=== PATIENT | male | born 1950 | race Caucasian/White ===

== ENCOUNTER 2017-10-17 13:59 | Outpatient (CLI) | payer MEDICARE ==
--- NOTE | 2017-10-18 08:41 | MRI ---
MRI PELVIS WITH AND WITHOUT CONTRAST: Date: 10/17/17 HISTORY: Prostate cancer screening. C61, prostate cancer. Multiple prior prostate biopsies. Most recent PSA wa s 5.61 ng/mL. TECHNIQUE: Multiplanar, multisequence MRI of the pelvis performed prior to and after the intravenous administrat ion of contrast using prostate protocol. Review is performed at an independent 3D workstation. FINDINGS: Prostate: Prostate measures 5.4 x 4.3 x 4.5 cm, for a volume of 51.66 mL. Peripheral Zone: No abnormality seen on DWI or ADC. Transitional Zone: Within the apex of the gland transitional zone medial right lobe, is a focal area of lentiform noncir cumscribed homogeneous moderately T2 hypointense lesion. This measures approximately 0.6 x 0.9 x 1.1 cm (trans x AP x CC). This mass does arterial enhancement and washout. Neurovascular Bundles: Intact. Prostatic Capsule: Intact. Bones: No abnormal loss of signal on T1-weighted images to suggest metastatic disease. Lymph Nodes: Intact. No adenopathy. Intrapelvic Soft Tissues: Normal. IMPRESSION: PI-RADS 4: High (clinically significant cancer is likely to be present). This is in the right transi tional zone apex medial gland measuring 0.6 x 0.9 x 1.1 cm. No extraprostatic extension. No neurovasc ular bundle invasion. No adenopathy or evidence of osseous metastatic disease. POS: [facility]
== END 2017-10-17 14:00 | disposition home or self-care (01) ==
LOC: BICMRI 13:59 → TBSIIMAG 14:00
PROVIDERS: ATTEND Urology
DX: C61 Malignant neoplasm of prostate (principal)
CPT/HCPCS: 72197; 82565

== ENCOUNTER 2017-11-29 10:13 | Outpatient (CLI) | payer MEDICARE ==
[2017-11-29 11:35] LABS: Mean Corpuscular HGB CONC 33.4 g/dL (32.0-36.0); Mean Corpuscular Hemoglobin 29.8 pg (27.0-31.0); Mean Corpuscular Volume 89.1 fL (78.0-98.0); Mean Platelet Volume 8.5 fL (7.4-10.4); Platelet Count 145 thou/uL (130-400); Red Blood Cell (RBC) Count 5.36 mill/uL (4.70-6.10); White Blood Cell (WBC) Count 6.2 thou/uL (4.8-10.8)
[2017-11-29 11:37] LABS: Bilirubin Negative (Negative); Blood, Urine Negative (Negative); Clarity CLEAR (Clear); Glucose, Urine (Dipstick) Negative (Negative); Leukocyte Trace (Negative); Nitrite Negative (Negative); Protein, Urine (Dipstick) Negative (Neg-Trace); Specific Gravity, Urine 1.015 (1.002-1.036); Urobilinogen 0.2 mg/dL (0.2-1.0)
[2017-11-29 11:39] LABS: Bacteria/HPF None Seen HPF (None Seen); Hyaline Casts/LPF 0-3 HYALINE CAST LPF (0-3 Hyaline); Pathc Cast-AUWi Flag 0.14 (0-2.49); RBC/HPF 0-3 HPF (0-3); Squamous Epithelial None Seen HPF (0-3)
[2017-11-29 11:51] LABS: INR-International Normal Ratio 0.9; PTT 30.7 SEC (22.9-36.1); Prothrombin Time 12.7 SEC (12.0-14.7)
[2017-11-29 12:00] LABS: Anion Gap 12 mmol/L (10-20); BUN (Urea Nitrogen) 16 mg/dL (8.4-25.7); Calc. Creatinine Clearance 0 mL/min (70-130); Calcium 9.3 mg/dL (7.8-10.44); Carbon Dioxide 26 mmol/L (23-31); Chloride 104 mmol/L (98-107); Estimated GFR-MDRD 62; Glucose 93 mg/dL (80-115); Potassium 4.1 mmol/L (3.5-5.1); Sodium 138 mmol/L (136-145)
--- NOTE | 2017-12-01 23:16 | EKG ---
Test Reason : Blood Pressure : / mmHG Vent. Rate : 067 BPM Atrial Rate : 067 BPM P-R Int : 180 ms QRS Dur : 160 ms QT Int : 462 ms P-R-T Axes : 066 -14 063 degrees QTc Int : 488 ms Normal sinus rhythm Left bundle branch block Abnormal ECG No previous ECGs available Confirmed by Tonio HUNTER ([id number]) on 12/01/2017 11:16:31 PM Referred By: JERONIMO Confirmed By:Tonio HUNTER
== END 2017-11-29 10:14 | disposition home or self-care (01) ==
LOC: LABBT 10:13
PROVIDERS: ATTEND Urology
DX: Z01.818 Encounter for other preprocedural examination (principal); C61 Malignant neoplasm of prostate
CPT/HCPCS: 80048; 81001; 85027; 85610; 85730; 87086; 93005; 93010

== ENCOUNTER 2017-12-10 11:02 | Day surgery (SDC) | payer MEDICARE ==
[2017-11-29 10:29] VITALS: BMI 24.1
[2017-12-10] MEDS ORDERED: cefTRIAXone\\ROCEPHIN 1 GM VIAL ONE (14:35)
[2017-12-10] MEDS ORDERED: Sodium Chloride 0.9% 100 ML ONE (14:37)
[2017-12-10] MEDS ORDERED: Lidocaine 1% PF 5 ML VIAL ONE (14:52)
[2017-12-10] MEDS ORDERED: PROPOFOL 200 MG/20 ML VIAL ONE (14:52)
[2017-12-10] MEDS ORDERED: ePHEDrine/0.9% NaCl/PF SYRINGE 50 mg/10 ml ONE (14:52)
[2017-12-10] MEDS ORDERED: Fentanyl 100 MCG/2 ML VIAL ONE (15:51)
[2017-12-10] MEDS ORDERED: Midazolam HCl 2 mg/2 ml Vial ONE (15:51)
--- NOTE | 2017-12-10 20:16 | OP ---
DATE OF SURGERY: 12/10/2017 SERVICE: Urology. SURGEON: Greyson Donovan M.D. PREOPERATIVE DIAGNOSIS: Prostate cancer. POSTOPERATIVE DIAGNOSIS: Prostate cancer. PROCEDURE PERFORMED: MRI, ultrasound fusion prostate biopsy. INDICATIONS FOR PROCEDURE: Mr. Young is a 67-year-old white male who was diagnosed with Sera 3+3 prostate cancer in one core. He is undergoing active surveillance. As part of his surveillance prot ocol, we did an MRI which demonstrated a PI-RADS 4 lesion within the prostate. To ensure that there is not worse cancer in this location, we have elected to pursue an MRI fusion biopsy. Risks and bene fits have been discussed and he has agreed to proceed forward. DESCRIPTION OF PROCEDURE: After identification of armband and verification of consent, the patient w as brought back to the operating room. He underwent general anesthesia with LMA. He was then placed in the left lateral decubitus position and urinary system was positioned over the patient's rectum. The ultrasound probe was placed in the patient's rectum and calibration was performed to line up the MRI imaging with ultrasound. Volumetric studies were performed of the prostate which demonstrated t he prostate measured 38 mL. Once the fusion process was completed, 4 targeted biopsies were taken of PIRADS 4 lesion which was previously noted on MRI. These 4 were submitted separately from the remai nder of the prostate biopsies which were taken in the usual standard 12 core template fashion. Upon completion, there was minimal bleeding. The ultrasound probe was removed. The patient was then awak ened and taken to PACU for recovery in stable condition. COMPLICATIONS: None. ESTIMATED BLOOD LOSS: Minimal. RETAINED TUBES OR DRAINS: None. SPECIMENS: Prostate biopsies. DISPOSITION: The patient will be discharged home and follow up with me in approximately 2 weeks for a postop check and biopsy results.
== END 2017-12-10 19:00 | disposition home or self-care (01) ==
LOC: SDC 11:02
PROVIDERS: ATTEND Urology
PROC: 0VB03ZX Excision of Prostate, Percutaneous Approach, Diagnostic (ICD-10-PCS; principal; 2017-12-10)
DX: C61 Malignant neoplasm of prostate (principal); N40.0 Benign prostatic hyperplasia without lower urinary tract symptoms; Z87.891 Personal history of nicotine dependence; Z79.899 Other long term (current) drug therapy
CPT/HCPCS: 88305; J0696; J2001; J2250; J2704; J3010; J7050

== ENCOUNTER 2019-01-05 09:18 | Outpatient (CLI) | payer MEDICARE ==
--- NOTE | 2019-01-05 11:19 | MRI ---
EXAM: MRI of the pelvis/prostate without and with contrast HISTORY: Prostate cancer COMPARISON: 10/17/2017 TECHNIQUE: Multiplanar multisequence MR images were obtained of the pelvis without and with IV contra st. Evaluation of this exam was performed with a [employer] workstation. FINDINGS: Central gland: Moderate hypertrophy of the central gland consistent with BPH. There is a low T2 signa l lesion in the prostate near the apex measuring 1.3 cm in size. This appears to have slightly enlarged compared to the prior examination. This area has a washout-type enhancement curve. Peripheral zone: No restricted diffusion is seen. No low signal on ADC map. Seminal vesicles: Intact without abnormality Neurovascular bundles: Intact Pelvic lymph nodes: No pelvic adenopathy Other visualized intrapelvic structures: Unremarkable Osseous structures: No marrow signal abnormality IMPRESSION: PI-RADS Category 4-high likelihood that a clinically significant cancer is present.
== END 2019-01-05 09:19 | disposition home or self-care (01) ==
LOC: TBSIIMAG 09:18
PROVIDERS: ATTEND Urology
DX: C61 Malignant neoplasm of prostate (principal)
CPT/HCPCS: 72197

== ENCOUNTER 2019-04-15 14:33 | Outpatient (CLI) | payer MEDICARE ==
--- NOTE | 2019-04-15 15:05 | ULT ---
BILATERAL CAROTID DUPLEX ULTRASOUND: HISTORY: Carotid bruit, right-sided TECHNIQUE: Grayscale, color-flow and spectral Doppler ultrasound imaging of the extracranial carotid artery syst ems was performed bilaterally. FINDINGS: There is a small amount of plaque noted on both sides. The peak systolic velocity in the right ICA measures 152 cm/s with an end-diastolic velocity of 31 cm /s and a systolic ratio of 1.39. The peak systolic velocity in the left ICA measures 81 cm/s with an end-diastolic velocity of 17 cm/s and a systolic ratio of 0.83. Flow in the right vertebral artery remains antegrade. There is retrograde flow in the left vertebral artery IMPRESSION: 1. Moderate (50-69%) stenosis of the right ICA. 2. Left subclavian steal syndrome.
== END 2019-04-15 14:34 | disposition home or self-care (01) ==
LOC: ULT 14:33
PROVIDERS: ATTEND Family Medicine
DX: R09.89 Other specified symptoms and signs involving the circulatory and respiratory systems (principal); T82.898A Other specified complication of vascular prosthetic devices, implants and grafts, initial encounter; I65.21 Occlusion and stenosis of right carotid artery
CPT/HCPCS: 93880

== ENCOUNTER 2019-06-30 11:13 | Outpatient (CLI) | payer MEDICARE ==
--- NOTE | 2019-06-30 11:40 | RAD ---
RADIOGRAPH CHEST 2 VIEWS: DATE: 06/30/2019 HISTORY: 68-year-old male with cough FINDINGS: There is no airspace density, pulmonary edema, pleural effusion, pneumothorax, or cardiomegaly. IMPRESSION: No acute cardiopulmonary findings.
== END 2019-06-30 11:14 | disposition home or self-care (01) ==
LOC: BICRAD 11:13
PROVIDERS: ATTEND Family Medicine
DX: J45.991 Cough variant asthma (principal)
CPT/HCPCS: 71046

== ENCOUNTER 2019-11-02 05:51 | Outpatient (CLI) | payer MEDICARE, OTHER ==
[2019-11-02 13:55] LABS: Hemoglobin 15.6 g/dL (14.0-18.0); Mean Corpuscular HGB CONC 33.2 g/dL (32.0-36.0); Mean Corpuscular Hemoglobin 29.9 pg (27.0-31.0); Mean Corpuscular Volume 90.3 fL (78.0-98.0); Mean Platelet Volume 9.5 fL (7.4-10.4); Platelet Count 143 thou/uL (130-400); RBC Distribution Width 12.1 % (11.5-14.5); Red Blood Cell (RBC) Count 5.21 mill/uL (4.70-6.10)
[2019-11-02 13:56] LABS: INR-International Normal Ratio 0.9; PTT 28.7 sec (22.9-36.1); Prothrombin Time 12.3 sec (12.0-14.7)
[2019-11-02 14:11] LABS: Anion Gap 11 mmol/L (10-20); BUN (Urea Nitrogen) 14 mg/dL (8.4-25.7); Calc. Creatinine Clearance 0 mL/min (70-130); Calcium 9.3 mg/dL (7.8-10.44); Carbon Dioxide 28 mmol/L (23-31); Chloride 105 mmol/L (98-107); Estimated GFR-MDRD 68; Glucose 113 mg/dL (80-115); Potassium 4.2 mmol/L (3.5-5.1); Sodium 140 mmol/L (136-145)
[2019-11-02 14:19] LABS: Bacteria/HPF None Seen HPF (None Seen); Bilirubin Negative (Negative); Blood, Urine Negative (Negative); Clarity Extra Turbid (Clear); Glucose, Urine (Dipstick) Normal (Negative); Ketone, Urine Negative (Negative); Leukocyte Negative Leu/uL (Negative); Nitrite Negative (Negative); Protein, Urine (Dipstick) 30 mg/dL (Neg-Trace); RBC/HPF None Seen HPF (0-3); Specific Gravity, Urine 1.026 (1.002-1.036); Squamous Epithelial None Seen HPF (0-3); Urobilinogen Normal mg/dL (Less than 2); WBC/HPF None Seen HPF (0-3); pH, Urine 5.5 (5.0-9.0)
--- NOTE | 2019-11-02 17:52 | EKG ---
Test Reason : Blood Pressure : / mmHG Vent. Rate : 073 BPM Atrial Rate : 073 BPM P-R Int : 170 ms QRS Dur : 152 ms QT Int : 420 ms P-R-T Axes : 066 009 074 degrees QTc Int : 462 ms Normal sinus rhythm Left bundle branch block Abnormal ECG When compared with ECG of 29-NOV-2017 11:11, Nonspecific T wave abnormality now evident in Inferior leads Confirmed by RANDA FONG, . SKishor ([id number]) on 11/02/2019 5:51:53 PM Referred By: TIFFANIE Confirmed By:DR. Allen TOLENTINO MD
[2019-11-03 13:11] LABS: SARS-CoV-2 MS2 Positive; SARS-CoV-2 N Gene Negative; SARS-CoV-2 S Gene Negative; SARS-CoV-2 orf1ab Negative
== END 2019-11-02 05:52 | disposition home or self-care (01) ==
LOC: LABBT 05:51
PROVIDERS: ATTEND Surgery
DX: Z01.818 Encounter for other preprocedural examination (principal); Z11.59 Encounter for screening for other viral diseases; N40.1 Benign prostatic hyperplasia with lower urinary tract symptoms; C61 Malignant neoplasm of prostate; I45.4 Nonspecific intraventricular block; I70.0 Atherosclerosis of aorta
CPT/HCPCS: 80048; 81001; 85027; 85610; 85730; 87086; 93005; U0003; 87635; 93010

== ENCOUNTER 2019-11-06 06:26 | Day surgery (SDC) | payer MEDICARE ==
[2019-10-28 11:45] VITALS: BMI 22.4
[2019-11-06] MEDS ORDERED: Levofloxacin 500 mg/D5W 100 ml Premix Bag ONE (08:06)
[2019-11-06] MEDS ORDERED: B & O ONE (08:24)
[2019-11-06] MEDS ORDERED: Fentanyl 100 MCG/2 ML VIAL ONE (08:26)
[2019-11-06] MEDS ORDERED: Oxybutynin 5 MG TAB ONE (09:49)
[2019-11-06] MEDS ORDERED: Phenazopyridine HCl 97.5 MG TABLET ONE (09:49)
--- NOTE | 2019-11-06 10:00 | OP ---
DATE OF PROCEDURE: 11/06/2019 SERVICE: Urology. PREOPERATIVE DIAGNOSES: 1. Benign prostatic hypertrophy with obstruction. 2. Prostate cancer. POSTOPERATIVE DIAGNOSES: 1. Benign prostatic hypertrophy with obstruction. 2. Prostate cancer. PROCEDURE PERFORMED: UroLift with 6 implants. INDICATIONS FOR PROCEDURE: Mr. Young is a 68-year-old white male who currently has low-risk prostate cancer and is on active surveillance. He has urinary obstructive symptoms and we discussed UroLift. Risks and benefits were discussed and he agreed to proceed forward. DESCRIPTION OF PROCEDURE: After identification of armband and verification of consent, the patient was brought back to the operating room where he underwent total intravenous anesthesia. He was then placed in dorsal lithotomy position and prepped and draped in the usual sterile fashion. After appropriate time-out, a lubricated 21-Stateless rigid cystoscope sheath with visual obturator for the UroLift device was inserted through the urethra into the bladder. The prostate was hypertrophic as previously had been demonstrated on outpatient cystoscopy. The visual obturator was switched out for the UroLift implant device. The initial implant was placed at the patient's bladder neck on the left side by positioning the implant at the bladder neck and then coming back approximately 2.5 cm. The prostate was compressed laterally and anteriorly for a lift. Once in correct positioning, the safety was released and then the blue trigger fired to deploy the needle. The tension was set with a lovelace trigger and then the UroLift device advanced forward until the white line could be seen in the keyhole. The urethral end-piece was then deployed with blue back trigger until they did appear to be nice compression of the lateral aspect of the prostate. This was then repeated on the patient's right bladder neck and had 2 additional implants placed at the apex. There seemed to be a large bulge as anteriorly as well as on the patient's right lateral aspect of the prostate. An additional implant was placed on the patient's right lateral aspect and then another one anteriorly, which resulted in a nice anterior channel throughout the prostate from the verumontanum to the bladder neck. I felt this would be a good channel for the patient to urinate through. At this point, I did not feel any additional implants would be meaningful, therefore the cystoscope was removed. An 18-Stateless Irving catheter was placed with ease into the bladder and then 10 mL of sterile water placed into the balloon. The B and O suppository was placed. The catheter was affixed to a gravity bag. The patient was taken out of positioning, awakened, taken to Day Stay for recovery in stable condition. COMPLICATIONS: None. ESTIMATED BLOOD LOSS: Minimal. RETAINED TUBES AND DRAINS: An 18-Stateless Irving catheter. IMPLANTS USED: Six. SPECIMENS: None. DISPOSITION: The patient will possibly undergo a void trial pending his urine clarity. Once he is discharged, his care will be handled on an outpatient basis. Job ID: [id number]
[2019-11-06] MEDS ORDERED: traMADol HCl 50 MG TAB ONE (10:40)
[2019-11-06] MEDS ORDERED: Ondansetron PF 4 MG/2 ML Vial ONE (11:58)
[2019-11-06] MEDS ORDERED: PROPOFOL 200 MG/20 ML VIAL ONE (11:58)
[2019-11-06] MEDS ORDERED: Lidocaine 1% PF 5 ML VIAL ONE (11:58)
== END 2019-11-06 11:45 | disposition home or self-care (01) ==
LOC: SDC 06:26
PROVIDERS: ATTEND Urology
PROC: 0T7D8DZ Dilation of Urethra with Intraluminal Device, Via Natural or Artificial Opening Endoscopic (ICD-10-PCS; principal; 2019-11-06)
DX: N40.1 Benign prostatic hyperplasia with lower urinary tract symptoms (principal); N13.8 Other obstructive and reflux uropathy; C61 Malignant neoplasm of prostate; R39.11 Hesitancy of micturition; R35.1 Nocturia; R39.15 Urgency of urination; R39.12 Poor urinary stream; I45.4 Nonspecific intraventricular block; I70.0 Atherosclerosis of aorta; Z87.891 Personal history of nicotine dependence; Z79.899 Other long term (current) drug therapy
CPT/HCPCS: C1889; C9740; 36415; 51702; 80048; 81003; 81015; 85025; 87086; J1956; J2405; J2704; J3010

== ENCOUNTER 2019-11-06 17:13 | Emergency (ER) | payer MEDICARE ==
[2019-11-06 18:01] LABS: #Eosinphils 0.1 thou/uL (0.0-0.7); #Lymphocytes 1.2 thou/uL (1.20-3.40); #Monocytes 0.8 thou/uL (0.11-0.59); %Basophils 0.1 % (0.0-1.0); %Eosinophils 0.5 % (0.0-10.0); %Lymphocytes 10.8 % (21.0-51.0); %Monocytes 7.5 % (0.0-10.0); %Neutrophils 81.1 % (42.0-75.0); Hemoglobin 14.6 g/dL (14.0-18.0); Mean Corpuscular HGB CONC 32.9 g/dL (32.0-36.0); Mean Corpuscular Hemoglobin 29.3 pg (27.0-31.0); Mean Corpuscular Volume 89.1 fL (78.0-98.0); Mean Platelet Volume 9.2 fL (7.4-10.4); Platelet Count 153 thou/uL (130-400); Red Blood Cell (RBC) Count 4.99 mill/uL (4.70-6.10); White Blood Cell (WBC) Count 11.1 thou/uL (4.8-10.8)
[2019-11-06 18:21] LABS: Anion Gap 11 mmol/L (10-20); BUN (Urea Nitrogen) 13 mg/dL (8.4-25.7); Calc. Creatinine Clearance 0 mL/min (70-130); Calcium 9.3 mg/dL (7.8-10.44); Carbon Dioxide 26 mmol/L (23-31); Chloride 100 mmol/L (98-107); Estimated GFR-MDRD 85; Glucose 108 mg/dL (80-115); Potassium 4.1 mmol/L (3.5-5.1); Sodium 133 mmol/L (136-145)
[2019-11-06 18:30] LABS: Bilirubin Negative (Negative); Clarity Extra Turbid (Clear); Glucose, Urine (Dipstick) Normal (Negative); Ketone, Urine Negative (Negative); RBC/HPF Greater than 50 HPF (0-3); Specific Gravity, Urine 1.009 (1.002-1.036); Urobilinogen Normal mg/dL (Less than 2)
[2019-11-06 18:33] LABS: Blood, Urine Large (Negative); Leukocyte Unable to Interpret Leu/uL (Negative); Nitrite Unable to Interpret (Negative); Protein, Urine (Dipstick) Unable to Interpret mg/dL (Neg-Trace)
[2019-11-06 18:38] LABS: Bacteria/HPF None Seen HPF (None Seen); Squamous Epithelial 0-3 HPF (0-3)
== END 2019-11-06 19:28 | disposition home or self-care (01) ==
LOC: ERS 17:13
DX: R33.9 Retention of urine, unspecified (principal)
CPT/HCPCS: 36415; 51702; 80048; 81003; 81015; 85025; 87086

== ENCOUNTER 2020-01-11 08:55 | Outpatient (CLI) | payer MEDICARE ==
--- NOTE | 2020-01-11 10:02 | CT ---
CT ABDOMEN PELVIS WITH ORAL AND IV CONTRAST: HISTORY: Umbilical pain and right upper quadrant pain COMPARISON: None FINDINGS: There is a calcified granuloma in the right lung base. There are dependent changes in the posterior l ajit bases. The patient is post cholecystectomy. There is fatty infiltration of the liver without focal mass or abnormal biliary ductal dilatation. The spleen, pancreas and adrenal glands are normal. There are cysts in the kidneys measuring up to 2 cm in the inferior pole of left kidney. No free air, free fluid or lymphadenopathy seen in the abdomen or pelvis. The small bowel loops are n ot abnormally dilated. There are vascular calcifications without evidence of aneurysmal dilatation of the abdominal aorta. There are brachytherapy beads seen in the prostate gland. IMPRESSION:4 1. Fatty liver 2. Renal cysts
== END 2020-01-11 08:56 | disposition home or self-care (01) ==
LOC: BICCT 08:55
PROVIDERS: ATTEND Physician Assistant Medical
DX: R10.11 Right upper quadrant pain (principal); R10.33 Periumbilical pain; K76.0 Fatty (change of) liver, not elsewhere classified; N28.1 Cyst of kidney, acquired
CPT/HCPCS: 74177; 82565

== ENCOUNTER 2020-05-19 08:57 | Outpatient (CLI) | payer MEDICARE ==
--- NOTE | 2020-05-19 11:16 | MRI ---
MR OF THE PELVIS WITH AND WITHOUT CONTRAST INDICATION: Prostate Cancer History of Urolift procedure COMPARISON: None TECHNIQUE: Multiplanar, multisequence MR images were obtained of the pelvis with and without IV contr ast. 20 cc of MultiHance was utilized for the examination. The examination was reviewed on a separate [employer] 3-D workstation for multiplanar metric evaluation. FINDINGS: Prostate size: The prostate measured 5.6 x 4.9 x 5.6cm. 55.61 cc. Peripheral zone: No area of restricted diffusion is seen within the peripheral zone. Central zone: There are foci of metallic susceptibility artifact involving the base and mid aspect of the transitional zone of the central prostate gland consistent with patient's history of a urolift procedure. The suspicious T2 hypointense lesion seen within the apex to mid gland of the right transi tional zone has increased in size and now measures 1.7 x 1.3 x 1.5 cm. Previously the lesion on the October 17, 2017 examination measured 0.6 x 0.9 x 1.1 cm. The lesion had increased in size to 1.3 cm on the January 05, 2019 exam. Neural vasculature: No evidence of neurovascular invasion Regional lymphadenopathy: None Dynamic contrast enhancement: The lesion within the right transitional zone within the mid to apical portion of the gland demonstrates abnormal dynamic contrast enhancement. Osseous structures: No suspicious osseous lesion is identified. Additional findings: None.. IMPRESSION: 1. PIRADS 5- Very High (clinically significant cancer is highly likely to be present.)
== END 2020-05-19 08:58 | disposition home or self-care (01) ==
LOC: TBSIIMAG 08:57
PROVIDERS: ATTEND Urology
DX: C61 Malignant neoplasm of prostate (principal)
CPT/HCPCS: 72197

== ENCOUNTER 2020-06-09 05:53 | Day surgery (SDC) | payer MEDICARE ==
[2020-06-07 11:40] VITALS: BMI 23.0
[2020-06-09] MEDS ORDERED: cefTRIAXone\\ROCEPHIN 1 GM VIAL ONE (06:48)
[2020-06-09] MEDS ORDERED: Sodium Chloride 0.9% 100 ML ONE (06:54)
[2020-06-09] MEDS ORDERED: Midazolam HCl 2 mg/2 ml Vial ONE ×2 (07:05→07:39)
[2020-06-09] MEDS ORDERED: Fentanyl 100 MCG/2 ML VIAL ONE (07:05)
[2020-06-09] MEDS ORDERED: Propofol 500 MG/50 ML VIAL ONE ×2 (07:06→07:14)
[2020-06-09] MEDS ORDERED: Ketamine 50 MG/ML (10ML VIAL) ONE (07:06)
[2020-06-09] MEDS ORDERED: Oxybutynin 5 MG TAB ONE (08:52)
[2020-06-09] MEDS ORDERED: PROPOFOL 200 MG/20 ML VIAL ONE (10:49)
== END 2020-06-09 09:30 | disposition home or self-care (01) ==
LOC: SDC 05:53
PROVIDERS: ATTEND Urology
PROC: 0VB03ZX Excision of Prostate, Percutaneous Approach, Diagnostic (ICD-10-PCS; principal; 2020-06-09)
DX: C61 Malignant neoplasm of prostate (principal); N40.1 Benign prostatic hyperplasia with lower urinary tract symptoms; I70.0 Atherosclerosis of aorta; I45.4 Nonspecific intraventricular block
CPT/HCPCS: 88305; 88341; 88342; J0696; J2250; J2704; J3010; J3490

== ENCOUNTER 2021-01-23 08:45 | Outpatient (CLI) | payer MEDICARE ==
[2020-06-06 09:51] LABS: Mean Corpuscular HGB CONC 32.7 g/dL (32.0-36.0); Mean Corpuscular Hemoglobin 28.8 pg (27.0-33.0); Mean Corpuscular Volume 88.1 fl (81.2-95.1); Mean Platelet Volume 11.3 fl (7.4-10.4); Platelet Count 179 10x3/uL (150-450); RBC Distribution Width 13.1 % (11.5-14.5); Red Blood Cell (RBC) Count 5.56 10x6/uL (4.32-5.72); White Blood Cell (WBC) Count 6.3 10x3/uL (3.5-10.5)
[2020-06-06 09:54] LABS: Bilirubin Neg (Negative); Blood, Urine Negative (Negative); Clarity Clear (Clear); Glucose, Urine (Dipstick) Normal (Negative); Ketone, Urine 5 mg/dL (Negative); Leukocyte Negative (Negative); Nitrite Negative (Negative); Protein, Urine (Dipstick) Negative (Neg-Trace); Specific Gravity, Urine 1.015 (1.002-1.036); Urobilinogen Normal mg/dL (Less than 2)
[2020-06-06 09:57] LABS: Anion Gap 15 mmol/L (10-20); BUN (Urea Nitrogen) 16 mg/dL (8.4-25.7); Calc. Creatinine Clearance 0 mL/min (70-130); Calcium 9.5 mg/dL (7.8-10.44); Carbon Dioxide 24 mmol/L (23-31); Chloride 104 mmol/L (98-107); Glucose 93 mg/dL (83-110); Potassium 4.2 mmol/L (3.5-5.1); Sodium 139 mmol/L (136-145)
[2020-06-06 10:06] LABS: PTT 29.8 sec (22.0-33.0); Prothrombin Time 10.3 sec (9.5-12.1)
[2020-06-06 11:19] LABS: Bacteria/HPF None Seen HPF (None Seen); RBC/HPF 0-3 HPF (0-3); Squamous Epithelial None Seen HPF (0-3); WBC/HPF None Seen HPF (0-3)
[2020-06-06 20:48] LABS: SARS-CoV-2 PCR by NAA Not Detected (NotDetected)
[2021-01-23 11:01] LABS: Hemoglobin 15.5 g/dL (13.5-17.5); Mean Corpuscular Hemoglobin 29.4 pg (27.0-33.0); Mean Corpuscular Volume 88.8 fl (81.2-95.1); Mean Platelet Volume 11.5 fl (7.4-10.4); Platelet Count 182 10x3/uL (150-450); Red Blood Cell (RBC) Count 5.28 10x6/uL (4.32-5.72); White Blood Cell (WBC) Count 6.3 10x3/uL (3.5-10.5)
[2021-01-23 11:05] LABS: ALT (SGPT) 34 U/L (8-55); AST (SGOT) 26 U/L (5-34); Albumin 4.4 g/dL (3.4-4.8); Alkaline Phosphatase 73 U/L (40-110); Anion Gap 14 mmol/L (10-20); BUN (Urea Nitrogen) 18 mg/dL (8.4-25.7); Calc. Creatinine Clearance 0 mL/min (70-130); Calcium 9.9 mg/dL (7.8-10.44); Carbon Dioxide 26 mmol/L (23-31); Chloride 104 mmol/L (98-107); Globulin 2.7 g/dL (2.4-3.5); Glucose 94 mg/dL (83-110); Potassium 4.3 mmol/L (3.5-5.1); Protein, Total 7.1 g/dL (5.8-8.1); Sodium 140 mmol/L (136-145)
[2021-01-23 11:09] LABS: INR-International Normal Ratio 0.9; PTT 26.9 sec (22.0-33.0); Prothrombin Time 10.2 sec (9.5-12.1)
[2021-01-23 11:53] LABS: Bilirubin Neg (Negative); Blood, Urine Negative (Negative); Clarity Clear (Clear); Glucose, Urine (Dipstick) Normal (Negative); Ketone, Urine Negative (Negative); Leukocyte Negative (Negative); Nitrite Negative (Negative); Protein, Urine (Dipstick) Negative (Neg-Trace); Specific Gravity, Urine 1.015 (1.002-1.036); Urobilinogen Normal mg/dL (Less than 2)
[2021-01-23 19:15] LABS: SARS-CoV-2 PCR by NAA Not Detected (NotDetected)
[2021-01-23 21:20] LABS: Bacteria/HPF Rare-Few HPF (None Seen); RBC/HPF 0-3 HPF (0-3); Squamous Epithelial None Seen HPF (0-3); WBC/HPF 0-3 HPF (0-3)
== END 2021-01-23 08:46 | disposition home or self-care (01) ==
LOC: LABBT 08:45
PROVIDERS: ATTEND Urology
DX: Z01.818 Encounter for other preprocedural examination (principal); C61 Malignant neoplasm of prostate; N40.1 Benign prostatic hyperplasia with lower urinary tract symptoms; I70.0 Atherosclerosis of aorta; Z20.822 Contact with and (suspected) exposure to COVID-19
CPT/HCPCS: 71046; 80048; 80053; 81001 ×2; 85027 ×2; 85610 ×2; 85730 ×2; 86850; 86900; 86901; 87086 ×2; 93005; U0003 ×2; U0005 ×2; 93010

== ENCOUNTER 2021-01-23 09:00 | Inpatient (IN) | payer MEDICARE ==
[2021-01-23 11:01] LABS: Hemoglobin 15.5 g/dL (13.5-17.5); Mean Corpuscular Hemoglobin 29.4 pg (27.0-33.0); Mean Corpuscular Volume 88.8 fl (81.2-95.1); Mean Platelet Volume 11.5 fl (7.4-10.4); Platelet Count 182 10x3/uL (150-450); Red Blood Cell (RBC) Count 5.28 10x6/uL (4.32-5.72); White Blood Cell (WBC) Count 6.3 10x3/uL (3.5-10.5)
[2021-01-23 11:05] LABS: ALT (SGPT) 34 U/L (8-55); AST (SGOT) 26 U/L (5-34); Albumin 4.4 g/dL (3.4-4.8); Alkaline Phosphatase 73 U/L (40-110); Anion Gap 14 mmol/L (10-20); BUN (Urea Nitrogen) 18 mg/dL (8.4-25.7); Calc. Creatinine Clearance 0 mL/min (70-130); Calcium 9.9 mg/dL (7.8-10.44); Carbon Dioxide 26 mmol/L (23-31); Chloride 104 mmol/L (98-107); Globulin 2.7 g/dL (2.4-3.5); Glucose 94 mg/dL (83-110); Potassium 4.3 mmol/L (3.5-5.1); Protein, Total 7.1 g/dL (5.8-8.1); Sodium 140 mmol/L (136-145)
[2021-01-23 11:09] LABS: INR-International Normal Ratio 0.9; PTT 26.9 sec (22.0-33.0); Prothrombin Time 10.2 sec (9.5-12.1)
[2021-01-23 19:15] LABS: SARS-CoV-2 PCR by NAA Not Detected (NotDetected)
[2021-01-25 11:47] VITALS: BMI 23.7
[2021-01-26] MEDS ORDERED: Dexmedetomidine 200 MCG/2 ML VIAL ONE (06:32)
[2021-01-26] MEDS ORDERED: Fentanyl 100 MCG/2 ML VIAL ONE ×2 (06:33→09:05)
[2021-01-26] MEDS ORDERED: Bupivacaine 0.25% HCL 30 ML VIAL ONE (06:57)
[2021-01-26] MEDS ORDERED: Lidocaine 1% w/Epinephrine 1:100K 20 ML VIAL ONE (06:57)
[2021-01-26] MEDS ORDERED: cefOXitin Sodium/Dextrose,Iso 1 GM in Premix Bag 1 BAG IVPB SCH (07:00)
[2021-01-26] MEDS ORDERED: Gentamicin Sulfate 80 MG in Premix Bag 1 BAG IVPB SCH (07:00)
[2021-01-26] MEDS ORDERED: Sodium Chloride 0.9% 0 ML ONE (07:12)
[2021-01-26] MEDS ORDERED: Gentamicin 80 MG/2 ML VIAL ONE (07:12)
[2021-01-26] MEDS ORDERED: Rocuronium Bromide 10 MG/ML (10ML VIAL) ONE (09:15)
[2021-01-26] MEDS ORDERED: Ondansetron PF 4 MG/2 ML Vial ONE (09:15)
[2021-01-26] MEDS ORDERED: PROPOFOL 200 MG/20 ML VIAL ONE (09:15)
[2021-01-26] MEDS ORDERED: Lidocaine 1% PF 5 ML VIAL ONE (09:15)
[2021-01-26] MEDS ORDERED: Glycopyrrolate 0.2 MG/ML 5 ML SYRINGE ONE (09:15)
[2021-01-26] MEDS ORDERED: Dexamethasone 20 MG/5 ML VIAL ONE (09:15)
[2021-01-26] MEDS ORDERED: ePHEDrine 50 MG/ML VIAL ONE (09:15)
[2021-01-26] MEDS ORDERED: B & O 30 MG SUPP ONE (13:17)
[2021-01-26] MEDS ORDERED: Promethazine HCl 25 MG/ML VIAL IVPB PRN (13:56)
[2021-01-26] MEDS ORDERED: Promethazine HCl 25 MG/ML VIAL IM PRN (13:56)
[2021-01-26] MEDS ORDERED: HYDROmorphone 2 MG/ML VIAL SLOW IVP PRN (13:56)
[2021-01-26] MEDS ORDERED: Ondansetron HCl/PF 4 MG/2 ML Vial IVP PRN (13:56)
[2021-01-26] MEDS ORDERED: Ketorolac Tromethamine 30 MG/ML VIAL ONE (14:43)
[2021-01-26] MEDS ORDERED: Oxybutynin 5 MG TAB PO PRN (14:51)
[2021-01-26] MEDS ORDERED: Fentanyl 100 MCG/2 ML VIAL SLOW IVP PRN (14:51)
[2021-01-26] MEDS ORDERED: Mag-Al 1200 mg/1200 mg/30 ML UDCUP PO PRN (14:51)
[2021-01-26] MEDS ORDERED: hydrALAZINE 20 MG/ML VIAL SLOW IVP PRN (14:51)
[2021-01-26] MEDS ORDERED: Ondansetron PF 4 MG/2 ML Vial IVP PRN (14:51)
[2021-01-26] MEDS ORDERED: Sodium Chloride 0.9% 1,000 ML IV SCH (14:51)
[2021-01-26] MEDS ORDERED: oxyCODONE 5 MG TAB PO PRN ×2 (14:51)
[2021-01-26] MEDS ORDERED: diphenhydrAMINE 25 MG CAP PO PRN (14:51)
[2021-01-26 15:01] LABS: Mean Corpuscular HGB CONC 33.4 g/dL (32.0-36.0); Mean Corpuscular Hemoglobin 30.5 pg (27.0-31.0); Mean Corpuscular Volume 91.3 fL (78.0-98.0); Mean Platelet Volume 8.8 fL (7.4-10.4); Platelet Count 138 thou/uL (130-400); RBC Distribution Width 11.9 % (11.5-14.5)
[2021-01-26] MEDS ORDERED: HYDROmorphone 0.5 MG/0.5 ML SYRINGE ONE (15:16)
[2021-01-26 15:24] LABS: Anion Gap 9 mmol/L (10-20); BUN (Urea Nitrogen) 11 mg/dL (8.4-25.7); Calc. Creatinine Clearance 81 mL/min (70-130); Calcium 8.5 mg/dL (7.8-10.44); Carbon Dioxide 25 mmol/L (23-31); Chloride 110 mmol/L (98-107); Glucose 154 mg/dL (83-110); Potassium 3.9 mmol/L (3.5-5.1); Sodium 140 mmol/L (136-145)
[2021-01-26] MEDS: Acetaminophen 500 MG TAB PO SCH ×2 (17:31→19:59)
[2021-01-26] MEDS: traMADol HCl 50 MG TAB PO SCH ×2 (17:31→20:01)
[2021-01-26] MEDS: Ketorolac Tromethamine 30 MG/ML VIAL IVP SCH (20:00)
[2021-01-26] MEDS: Docusate 100 MG CAP PO SCH (20:02)
[2021-01-26] MEDS: cefOXitin 1.5 GM in Sodium Chloride 0.9% 100 ML IVPB SCH (22:43)
[2021-01-27] MEDS: Acetaminophen 500 MG TAB PO SCH ×4 (01:55→21:14)
[2021-01-27] MEDS: traMADol HCl 50 MG TAB PO SCH ×4 (01:56→21:15)
[2021-01-27] MEDS: Ketorolac Tromethamine 30 MG/ML VIAL IVP SCH ×4 (01:58→21:13)
[2021-01-27] MEDS: cefOXitin 1.5 GM in Sodium Chloride 0.9% 100 ML IVPB SCH ×2 (05:48→13:50)
[2021-01-27 06:57] LABS: #Lymphocytes 1.5 thou/uL (1.20-3.40); #Monocytes 1.3 thou/uL (0.11-0.59); #Neutrophils 10.6 thou/uL (1.40-6.50); %Eosinophils 0.2 % (0.0-10.0); %Lymphocytes 11.4 % (21.0-51.0); %Monocytes 9.3 % (0.0-10.0); %Neutrophils 79.1 % (42.0-75.0); Hemoglobin 13.2 g/dL (14.0-18.0); Mean Corpuscular HGB CONC 33.3 g/dL (32.0-36.0); Mean Corpuscular Volume 90.1 fL (78.0-98.0); Mean Platelet Volume 9.4 fL (7.4-10.4); Platelet Count 136 thou/uL (130-400); RBC Distribution Width 11.8 % (11.5-14.5); White Blood Cell (WBC) Count 13.4 thou/uL (4.8-10.8)
[2021-01-27 07:15] LABS: Anion Gap 10 mmol/L (10-20); BUN (Urea Nitrogen) 12 mg/dL (8.4-25.7); Calc. Creatinine Clearance 87 mL/min (70-130); Calcium 8.4 mg/dL (7.8-10.44); Carbon Dioxide 24 mmol/L (23-31); Chloride 109 mmol/L (98-107); Glucose 82 mg/dL (83-110); Potassium 4.3 mmol/L (3.5-5.1); Sodium 139 mmol/L (136-145)
[2021-01-27] MEDS: Docusate 100 MG CAP PO SCH ×2 (08:26→21:16)
[2021-01-28] MEDS: Acetaminophen 500 MG TAB PO SCH ×2 (02:14→08:43)
[2021-01-28] MEDS: traMADol HCl 50 MG TAB PO SCH ×2 (02:15→08:43)
[2021-01-28] MEDS: Ketorolac Tromethamine 30 MG/ML VIAL IVP SCH ×2 (02:16→08:44)
[2021-01-28] MEDS: Docusate 100 MG CAP PO SCH (08:44)
[2021-01-28 11:50] VITALS: BP 135/96; TEMP 97.7
== END 2021-01-28 12:43 | disposition home or self-care (01) | DRG 708 ==
LOC: SURG A 01-26 06:12
PROVIDERS: ADMIT Urology; ATTEND Urology
PROC: 0VT04ZZ Resection of Prostate, Percutaneous Endoscopic Approach (ICD-10-PCS; principal; 2021-01-26)
PROC: 0VT34ZZ Resection of Bilateral Seminal Vesicles, Percutaneous Endoscopic Approach (ICD-10-PCS; 2021-01-26)
PROC: 07BC4ZZ Excision of Pelvis Lymphatic, Percutaneous Endoscopic Approach (ICD-10-PCS; 2021-01-26)
DX: C61 Malignant neoplasm of prostate (principal); I44.7 Left bundle-branch block, unspecified; E78.00 Pure hypercholesterolemia, unspecified; K22.70 Barrett's esophagus without dysplasia; G25.81 Restless legs syndrome; I34.0 Nonrheumatic mitral (valve) insufficiency; N40.1 Benign prostatic hyperplasia with lower urinary tract symptoms; I45.4 Nonspecific intraventricular block; I70.0 Atherosclerosis of aorta; Z20.822 Contact with and (suspected) exposure to COVID-19; I87.2 Venous insufficiency (chronic) (peripheral); I10 Essential (primary) hypertension; Z90.49 Acquired absence of other specified parts of digestive tract; Z87.891 Personal history of nicotine dependence
CPT/HCPCS: 36415; 80048; 80053; 85025; 85027; 85610; 85730; 86850; 86900; 86901; 88309; J0694; J1100; J1170; J1580; J1642; J1885; J2405; J2704; J3010; J3490; J7050; S0020; U0003; U0005